=== PATIENT | female | born 1995 | race African-American/Black ===

== ENCOUNTER 2017-01-26 12:42 | Emergency (ER) | payer SELFPAY ==
[~2017-01-26] VITALS: Ht 157.5 cm; Wt 45.0 kg
[~2017-01-26 12:42] MED LIST: FERR325T PO; ORTH0.25 PO
[2017-01-26 12:52] VITALS: BP 120/80; PULSE 88; RESP 20; TEMP 97.7; O2SAT 98
[2017-01-26 13:15] VITALS: BP 128/69; PULSE 80; RESP 16; O2SAT 100
[2017-01-26] MEDS ORDERED: SODIUM CHLOR 0.9% 1000 ML INJ 1,000 ML IV SCH (13:49)
[2017-01-26 14:00] VITALS: RESP 16; O2SAT 98
[2017-01-26] MEDS ORDERED: FAMOTIDINE 20 MG/2 ML VIAL IV PUSH ONE (14:00)
[2017-01-26] MEDS ORDERED: LIDOCAINE VISCOUS 2% SOLN 15 ML UDC PO ONE (14:00)
[2017-01-26] MEDS ORDERED: ONDANSETRON HCL 4 MG/2 ML VIAL IVP ONE (14:00)
[2017-01-26] MEDS ORDERED: SODIUM CHLORIDE 0.9% FLUSH 10 ML FLUSH IV FLUSH PRN (14:00)
[2017-01-26] MEDS ORDERED: ALUMINUM/MAGNESIUM/SIMETH 30 ML CUP PO ONE (14:00)
[2017-01-26 14:05] LABS: AUTOMATED NEUTROPHIL # 2.7 TH/MM3 (1.8-7.7); BASOPHIL % 1.2 % (0.0-2.0); EOSINOPHIL % 1.1 % (0.0-4.0); HEMATOCRIT 37.3 % (35.0-46.0); HEMO FLAGS DIFF FINAL; LYMPH % 19.2 % (9.0-44.0); LYMPHOCYTE # 0.7 TH/MM3 (1.0-4.8); MEAN CELL VOLUME 76.3 FL (80.0-100.0); MEAN CORPUSCULAR HGB CONC 32.7 % (32.0-36.0); MONO % 8.4 % (0.0-8.0); NEUT % 70.1 % (16.0-70.0); PLATELET COUNT 256 TH/MM3 (150-450); RED BLOOD COUNT 4.89 MIL/MM3 (4.00-5.30); RED CELL DISTRIBUTION WIDTH 16.7 % (11.6-17.2); WHITE BLOOD COUNT 3.9 TH/MM3 (4.0-11.0)
[2017-01-26 14:21] LABS: ANION GAP 9 MEQ/L (5-15); AST (GOT) 19 U/L (15-37); BICARBONATE 20.1 MEQ/L (21.0-32.0); BLOOD UREA NITROGEN 5 MG/DL (7-18); CHLORIDE 111 MEQ/L (98-107); GLOMERULAR FILTRATION RATE 96 ML/MIN (>89); POTASSIUM 3.7 MEQ/L (3.5-5.1); SODIUM (NA) 140 MEQ/L (136-145)
[2017-01-26 14:26] LABS: ALKALINE PHOSPHATASE 63 U/L (45-117); ALT (GPT) 18 U/L (10-53); TOTAL BILIRUBIN ADULT 0.4 MG/DL (0.2-1.0)
[2017-01-26 14:37] LABS: BLOOD, URINE MOD (NEG); GLUCOSE,URINE NEG (NEG); GRANULAR CAST, URINE 1 /lpf; HYALINE CAST, URINE 4 /lpf (RARE); KETONE, URINE TRACE mg/dL (NEG); MUCUS URINE MANY /lpf (OCC); NITRITE,URINE NEG (NEG); SQUAMOUS EPITHELIAL CELL URINE 7 /hpf (0-5); TRANSITIONAL EPI CELLS, URINE <1 /hpf; URINE COLOR YELLOW (YELLW/STRAW)
--- NOTE | 2017-01-26 14:37 | RADRPT ---
EXAM DATE/TIME: 01/26/2017 14:19 [place] COMPARISON: No previous studies available for comparison. INDICATIONS : Chest Pain MEDICAL HISTORY : None. SURGICAL HISTORY : None. ENCOUNTER: Initial ACUITY: 3 days PAIN SCORE: 8/10 LOCATION: Bilateral chest FINDINGS: PA and lateral views of the chest demonstrate the lungs to be symmetrically aerated without evidence of mass, infiltrate or effusion. The cardiomediastinal contours are unremarkable. Osseous structure s are intact. CONCLUSION: Normal examination. Brian Goncalves MD on January 26, 2017 at 14:35 Board Certified Radiologist. This report was verified electronically.
[2017-01-26 14:38] LABS: COMMENT (UR) CULT NOT INDICATED; CULTURE IF INDICATED CULT NOT INDICATED
[2017-01-26 15:00] VITALS: BP 128/69; PULSE 86; RESP 16; O2SAT 98
[2017-01-26] MEDS ORDERED: ZANT150T2 PO (15:00)
--- NOTE | 2017-01-26 15:00 | PD ---
HPI Chief Complaint: Chest Pain Time Seen by Provider: 13:39 Travel History International Travel<30 days: No Contact w/Intl Traveler<30days: No Traveled to known affect area: No History of Present Illness HPI Patient is a 21-year-old female who comes in complaining of burning in her chest and shakiness for the past 3 days. She says that she feels like she has heartburn, and that is related to stress. She says she really has not been eating very much because she has had no appetite due to increased stress. She also reports occasionally having shortness of breath. She denies any cough. She denies any abdominal pain. She has had some nausea. She is currently on her menstrual period. She has history of anemia in the past, no history of heart problems. She is not currently taking any control pills. She denies any leg swelling or pain. She denies any drug use. [facility] Past Medical History Medical History: Denies Significant Hx Anemia: Yes Asthma: Yes Depression: Yes Cardiovascular Problems: No Diminished Hearing: No Psychiatric: Yes Immunizations Current: Yes Seizures: No Tetanus Vaccination: Unknown Influenza Vaccination: No PNEUMOCCOCAL Vaccine (Year): 1 ?: Not LMP: 01/26/2017 : 0 Past Surgical History Surgical History: No Previous Surgery Other Surgery: No Social History Alcohol Use: No Tobacco Use: No Substance Use: No Allergies-Medications (Allergen,Severity, Reaction): Coded Allergies: No Known Allergies (Verified , 01/26/17) Reported Meds & Prescriptions Reported Meds & Active Scripts Active Zantac (Ranitidine HCl) 150 Mg Tab 150 Mg PO BID Review of Systems Except as stated in HPI: all other systems reviewed are Neg General / Constitutional: No: Fever, Chills HENT: Positive: Lightheadedness Cardiovascular: Positive: Chest Pain or Discomfort Respiratory: Positive: Shortness of Breath, No: Cough Gastrointestinal: Positive: Nausea, No: Vomiting, Abdominal Pain Musculoskeletal: No: Myalgias, Pain Skin: No Rash Neurologic: No: Weakness Physical Exam Narrative GENERAL: Awake and alert, in no acute distress. SKIN: Focused skin assessment warm/dry. HEAD: Atraumatic. Normocephalic. EYES: Pupils equal and round. No scleral icterus. ENT: Mucous membranes pink and moist. NECK: Trachea midline. No JVD. CARDIOVASCULAR: Regular rate and rhythm. No murmur appreciated. RESPIRATORY: No accessory muscle use. Clear to auscultation. Breath sounds equal bilaterally. GASTROINTESTINAL: Abdomen soft, non-tender, nondistended. MUSCULOSKELETAL: No obvious deformities. No clubbing. No cyanosis. No edema. NEUROLOGICAL: Awake and alert. No obvious cranial nerve deficits. Motor grossly within normal limits. Normal speech. PSYCHIATRIC: Appropriate mood and affect; insight and judgment normal. Data Data Last Documented VS Vital Signs Date Time Temp Pulse Resp B/P Pulse Ox O2 Delivery O2 Flow Rate FiO2 01/26/17 15:00 86 16 128/69 98 Room Air 01/26/17 12:52 97.7 Orders Electrocardiogram (01/26/17 ) Complete Blood Count With Diff (01/26/17 13:49) Comprehensive Metabolic Panel (01/26/17 13:49) Lipase (01/26/17 13:49) Urinalysis - C+S If Indicated (01/26/17 13:49) Ua Includes Microscopic (01/26/17 13:49) Iv Access Insert/Monitor (01/26/17 13:49) Ecg Monitoring (01/26/17 13:49) Oximetry (01/26/17 13:49) Ondansetron Inj (Zofran Inj) (01/26/17 14:00) Sodium Chlor 0.9% 1000 Ml Inj (Ns 1000 M (01/26/17 13:49) Sodium Chloride 0.9% Flush (Ns Flush) (01/26/17 14:00) Famotidine Inj (Pepcid Inj) (01/26/17 14:00) Al-Mag Hy-Si 40-40-4 Mg/Ml Liq (Mag-Al P (01/26/17 14:00) Lidocaine 2% Viscous (Xylocaine 2% Visco (01/26/17 14:00) Ed Urine Pregnancytest Poc (01/26/17 13:49) Chest, Pa & Lat (01/26/17 ) Troponin I (01/26/17 13:49) D-Dimer (01/26/17 13:49) Labs Laboratory Tests Test 01/26/17 01/26/17 13:56 14:10 White Blood Count 3.9 TH/MM3 Red Blood Count 4.89 MIL/MM3 Hemoglobin 12.2 GM/DL Hematocrit 37.3 % Mean Corpuscular Volume 76.3 FL Mean Corpuscular Hemoglobin 25.0 PG Mean Corpuscular Hemoglobin 32.7 % Concent Red Cell Distribution Width 16.7 % Platelet Count 256 TH/MM3 Mean Platelet Volume 8.0 FL Neutrophils (%) (Auto) 70.1 % Lymphocytes (%) (Auto) 19.2 % Monocytes (%) (Auto) 8.4 % Eosinophils (%) (Auto) 1.1 % Basophils (%) (Auto) 1.2 % Neutrophils # (Auto) 2.7 TH/MM3 Lymphocytes # (Auto) 0.7 TH/MM3 Monocytes # (Auto) 0.3 TH/MM3 Eosinophils # (Auto) 0.0 TH/MM3 Basophils # (Auto) 0.0 TH/MM3 CBC Comment DIFF FINAL Differential Comment D-Dimer Quantitative (PE/DVT) 0.38 MG/L FEU Sodium Level 140 MEQ/L Potassium Level 3.7 MEQ/L Chloride Level 111 MEQ/L Carbon Dioxide Level 20.1 MEQ/L Anion Gap 9 MEQ/L Blood Urea Nitrogen 5 MG/DL Creatinine 0.89 MG/DL Estimat Glomerular Filtration 96 ML/MIN Rate Random Glucose 100 MG/DL Calcium Level 9.3 MG/DL Total Bilirubin 0.4 MG/DL Aspartate Amino Transf 19 U/L (AST/SGOT) Alanine Aminotransferase 18 U/L (ALT/SGPT) Alkaline Phosphatase 63 U/L Troponin I LESS THAN 0.02 NG/ML Total Protein 7.6 GM/DL Albumin 4.0 GM/DL Lipase 81 U/L Urine Color YELLOW Urine Turbidity HAZY Urine pH 6.0 Urine Specific [place] 1.031 Urine Protein 30 mg/dL Urine Glucose (UA) NEG mg/dL Urine Ketones TRACE mg/dL Urine Occult Blood MOD Urine Nitrite NEG Urine Bilirubin NEG Urine Urobilinogen 2.0 MG/DL Urine Leukocyte Esterase NEG Urine RBC 2 /hpf Urine WBC 1 /hpf Urine Squamous Epithelial 7 /hpf Cells Urine Transitional Epithelial <1 /hpf Cells Urine Hyaline Casts 4 /lpf Urine Granular Casts 1 /lpf Urine Mucus MANY /lpf Microscopic Urinalysis Comment CULT NOT INDICATED MDM Medical Decision Making Medical Screen Exam Complete: Yes Emergency Medical Condition: Yes Medical Record Reviewed: Yes Interpretation(s) ECG shows normal sinus rhythm at 78, no ST elevation or depression, normal intervals. Differential Diagnosis GERD versus cholelithiasis versus anemia versus PE Narrative Course Patient is a 21-year-old female who comes in complaining of chest pain, which she says feels like heartburn. Exam shows no acute abnormalities. IV established, labs sent. Labs show no acute abnormalities. Troponin and d- dimer are negative, hemoglobin is 12.2. Patient given IV fluids, GI cocktail. She reports resolution of her symptoms. She is drinking Gatorade without any problem. She is advised to try and eat small meals. Will be discharged with prescription for Zantac. Advised to follow-up with her doctor. Advised she can [facility] if she continues to have heavy periods. Diagnosis Primary Impression: GERD (gastroesophageal reflux disease) Qualified Code: K21.9 - Gastroesophageal reflux disease without esophagitis Patient Instructions: Gastroesophageal Reflux Disease (ED), General Instructions Additional Instructions: Avoid spicy foods. Try to eat multiple small meals each day. Follow up with a primary doctor. Return to the ED as needed for any worsening symptoms. Scripts Ranitidine (Zantac)150 Mg [id number] Mg PO BID #20 TAB Ref 0 Prov:Sarahi Wick MD 01/26/17 Disposition: 01 DISCHARGE HOME Condition: Stable Sarahi Wick MD Jan 26, 2017 15:00 Condition: Sarahi Larose MD Jan 26, 2017 15:00
--- NOTE | 2017-01-27 14:33 | EKG ---
Date Performed: 01/26/2017 Time Performed: 13:13:36 PTAGE: 21 years EKG: Sinus rhythm POSSIBLE RIGHT VENTRICULAR CONDUCTION DELAY BORDERLINE ECG PREVIOUS TRACING : 03/12/2011 05.23 Compared to prior tracing no significant change DOCTOR: Candelario Hooker Interpretating Date/Time 01/27/2017 14:28:15
== END 2017-01-26 15:56 | disposition home or self-care (01) ==
LOC: NEPE 12:42
DX: K21.9 Gastro-esophageal reflux disease without esophagitis (principal); R94.31 Abnormal electrocardiogram [ECG] [EKG]
CPT/HCPCS: 71020; 80053; 81001; 83690; 84484; 84703; 85025; 85379; 93005; 96361; 96374; 96375; 99285; J2405; J7030